=== PATIENT | male | born 1960 | race Caucasian/White ===

== ENCOUNTER 2020-11-08 06:40 | Outpatient (CLI) | payer OTHER ==
[2020-11-08 10:59] LABS: Bilirubin Neg (Negative); Blood, Urine Negative (Negative); Clarity Clear (Clear); Glucose, Urine (Dipstick) Normal (Negative); Ketone, Urine Negative (Negative); Leukocyte Negative (Negative); Nitrite Negative (Negative); Protein, Urine (Dipstick) Negative (Neg-Trace); Urobilinogen Normal mg/dL (Less than 2)
[2020-11-08 11:38] LABS: Bacteria/HPF Rare-Few HPF (None Seen); RBC/HPF 0-3 HPF (0-3); Squamous Epithelial 0-3 HPF (0-3); WBC/HPF 0-3 HPF (0-3)
[2020-11-08 12:46] LABS: #Eosinphils 0.3 10x3/uL (0.0-0.5); #Monocytes 0.6 10x3/uL (0.0-1.1); #Neutrophils 3.6 10x3/uL (1.5-8.4); %Basophils 0.6 % (0.0-2.0); %Lymphocytes 31.5 % (18.0-47.0); %Monocytes 8.8 % (0.0-10.0); %Neutrophils 54.6 % (40.0-75.0); Hemoglobin 13.8 g/dL (14.0-18.0); Mean Corpuscular HGB CONC 35.1 G/DL (32.0-36.0); Mean Corpuscular Hemoglobin 30.2 PG (27.0-33.0); Mean Platelet Volume 9.8 fl (7.4-10.4); Platelet Count 191 10x3/uL (130-400); RBC Distribution Width 12.6 % (11.5-14.5); Red Blood Cell (RBC) Count 4.57 10x6/uL (4.40-5.80); White Blood Cell (WBC) Count 6.5 10x3/uL (4.5-11.0)
[2020-11-09 11:43] LABS: SARS-CoV-2 PCR by NAA Not Detected (NotDetected)
--- NOTE | 2020-11-10 09:10 | EKG ---
Test Reason : PREOP Blood Pressure : / mmHG Vent. Rate : 069 BPM Atrial Rate : 069 BPM P-R Int : 162 ms QRS Dur : 086 ms QT Int : 384 ms P-R-T Axes : 023 027 028 degrees QTc Int : 411 ms Normal sinus rhythm Normal ECG No previous ECGs available Confirmed by ALBA BRANDT ([id number]) on 11/10/2020 9:10:07 AM Referred By: LUNA Confirmed By:ALBA BRANDT
== END 2020-11-08 06:41 | disposition home or self-care (01) ==
LOC: LABBT 06:40
PROVIDERS: ATTEND Orthopaedic Surgery Hand Surgery
DX: Z01.818 Encounter for other preprocedural examination (principal); G56.02 Carpal tunnel syndrome, left upper limb; Z20.822 Contact with and (suspected) exposure to COVID-19
CPT/HCPCS: 81001; 85025; 87635; 93005; 93010; U0003; U0005

== ENCOUNTER 2020-11-11 10:05 | Day surgery (SDC) | payer OTHER ==
[2020-11-09 11:01] VITALS: BMI 65.0
[2020-11-11] MEDS ORDERED: Dexamethasone 20 MG/5 ML VIAL ONE (10:06)
[2020-11-11] MEDS ORDERED: Ondansetron PF 4 MG/2 ML Vial ONE (10:06)
[2020-11-11] MEDS ORDERED: PROPOFOL 200 MG/20 ML VIAL ONE (10:06)
[2020-11-11] MEDS ORDERED: Lidocaine 1% PF 5 ML VIAL ONE (10:06)
[2020-11-11] MEDS ORDERED: Bupivacaine PF 0.5% 30 ML VIAL ONE (12:50)
[2020-11-11] MEDS ORDERED: Bacitracin Zinc Ointment 30 gm TUBE ONE (12:50)
[2020-11-11] MEDS ORDERED: Betamet Acet/Betamet Na Ph 30 MG/5 ML VIAL ONE (12:50)
[2020-11-11] MEDS ORDERED: Sodium Chloride 0.9% 0 ML ONE (12:51)
[2020-11-11] MEDS ORDERED: Fentanyl 100 MCG/2 ML VIAL ONE (13:59)
[2020-11-11] MEDS ORDERED: Ketorolac Tromethamine 30 MG/ML VIAL ONE (14:59)
--- NOTE | 2020-11-14 13:11 | OP ---
DATE OF PROCEDURE: 11/11/2020 PREOPERATIVE DIAGNOSIS: Left carpal tunnel syndrome. POSTOPERATIVE DIAGNOSIS: Left carpal tunnel syndrome. PROCEDURE PERFORMED: Left carpal tunnel release. TOURNIQUET TIME: 18 minutes. ESTIMATED BLOOD LOSS: 5 mL. FINDINGS: Very tight transverse carpal ligament in the distal and proximal aspects with compression of the nerve stippling, but no hourglass formation. DESCRIPTION OF PROCEDURE: After successful general endotracheal anesthesia, the limb was prepped and draped. Time-out was done and the marked area matched the consent which matched the medical record. The patient then had appropriate anesthesia prepping and draping, and then we injected 10 mL of 0.5% Marcaine in the outlined incision there, which was 5 mm distal to the volar wrist flexion crease all the way to the Barraza cardinal line in line with the ring finger. With the limb exsanguinated, the tourniquet inflated. We then made this incision, carried through skin and subcutaneous tissue. We saw the transverse carpal ligament. We entered transverse carpal ligament in its midportion just slightly ulnar to the center of the palmaris longus insertion. We carried this through transverse carpal ligament until we saw the underlying nerve and tendons. We then under direct visualization released the transverse carpal ligament from the midpoint distally and sparing the motor branch as well as the digital nerve branches. Then, we did the same thing from the midportion proximally under direct visualization using combination of [place] blade and tenotomy scissors. The area was completely free on inspection. There was no tenosynovitis, so no tenosynovectomy was needed. Tourniquet was released. Hemostasis obtained. We closed the incision with interrupted 4-0 nylon after placing Celestone 3 mL over the nerve. The bulky dressing was applied and the patient left the operating room with pink digit. No evidence of anesthetic or operative complication. Job ID: [id number]
== END 2020-11-11 16:26 | disposition home or self-care (01) ==
LOC: SDC 10:05
PROVIDERS: ATTEND Orthopaedic Surgery Hand Surgery
PROC: 01N50ZZ Release Median Nerve, Open Approach (ICD-10-PCS; principal; 2020-11-11)
DX: G56.03 Carpal tunnel syndrome, bilateral upper limbs (principal); I10 Essential (primary) hypertension; G47.30 Sleep apnea, unspecified; E66.01 Morbid (severe) obesity due to excess calories; Z68.42 Body mass index [BMI] 45.0-49.9, adult; Z87.891 Personal history of nicotine dependence; Z79.899 Other long term (current) drug therapy
CPT/HCPCS: J0690; J0702; J1100; J1885; J2405; J2704; J3010; J3490; S0020